=== PATIENT | male | born 1950 | race Caucasian/White ===

== ENCOUNTER 2017-10-29 05:38 | Emergency (ER) | payer OTHER ==
[2017-10-29] MEDS: IOHEXOL 100 ML (05:49)
[2017-10-29] MEDS: SOD CHLORIDE 0.9% 100 ML (05:49)
[2017-10-29 05:53] LABS: ADD MAN DIFF? NO
[2017-10-29 05:59] LABS: WHITE BLOOD COUNT 9.4 10^3/ul (4.8-10.8)
[2017-10-29 05:59] LABS: BASOPHILS % 0.4 % (0.0-2.0); EOSINOPHILS # 0.1 10^3/ul (0.0-0.5); EOSINOPHILS % 1.3 % (0.0-7.0); HEMATOCRIT 41.2 % (42.0-52.0); HEMOGLOBIN 14.2 g/dl (14.0-18.0); LYMPHOCYTES # 2.6 10^3/ul (0.8-2.9); LYMPHOCYTES % 27.6 % (15.0-51.0); MEAN CORPUSCULAR HEMOGLOBIN 31.4 pg (29.0-33.0); MEAN CORPUSCULAR HGB CONC 34.5 g/dl (32.0-37.0); MEAN CORPUSCULAR VOLUME 91.2 fl (82.0-101.0); MEAN PLATELET VOLUME 9.4 fl (7.4-10.4); MONOCYTE # 0.6 10^3/ul (0.3-0.9); MONOCYTES % 6.2 % (0.0-11.0); PLATELET COUNT 220 10^3/UL (140-415); RED BLOOD COUNT 4.52 10^6/ul (4.70-6.10)
[2017-10-29 06:12] LABS: ALANINE AMINOTRANSFERASE 26 IU/L (13-69); ALBUMIN 4.3 g/dl (3.3-4.9); ALBUMIN/GLOBULIN RATIO 1.04; ALKALINE PHOSPHATASE 98 IU/L (42-121); ANION GAP 20 (8-16); ASPARTATE AMINO TRANSFERASE 25 IU/L (15-46); BILIRUBIN,INDIRECT 0.4 mg/dl (0-1.1); BILIRUBIN,TOTAL 0.4 mg/dl (0.2-1.3); BLOOD UREA NITROGEN 9 mg/dl (7-20); CALCIUM 9.4 mg/dl (8.4-10.2); CARBON DIOXIDE 21 mmol/L (21-31); CHLORIDE 105 mmol/L (97-110); CHOL/HDL RATIO 5.5 RATIO; CHOLESTEROL 184 mg/dl (100-200); CREATINE KINASE 67 IU/L (23-200); CREATININE 0.89 mg/dl (0.61-1.24); GLUCOSE 248 mg/dl (70-220); HDL CHOLESTEROL 33 mg/dl (30-78); LDL CHOLESTEROL,CALCULATED 100 mg/dl; PARTIAL THROMBOPLASTIN TIME 32.4 Sec (25.0-35.0); POTASSIUM 3.8 mmol/L (3.5-5.1); SODIUM 142 mmol/L (135-144); TOTAL PROTEIN 8.4 g/dl (6.1-8.1); TRIGLYCERIDES 253 mg/dl (0-149)
[2017-10-29] MEDS: SOD CHLORIDE 0.9% 1,000 ML IV (06:13)
[2017-10-29 06:17] LABS: INR 1.08; PROTIME 14.1 Sec (11.9-14.9); PT RATIO 1.1
[2017-10-29 06:24] LABS: CK-MB 0.44 ng/ml (0.0-2.4); TROPONIN-I < 0.012 ng/ml (0.000-0.120)
[2017-10-29 06:25] LABS: CK INDEX 0.7
[2017-10-29 06:40] LABS: AADO2 Arterial 78.3 mmHg (7.0-24.0); Allen Test ACCEPTAB; Arterial Base Excess -2.6 mmol/L (-3.0-3); Arterial Blood Gas Oxygen Sat 94.7 mmHG (95.0-98.0); Arterial COHb 0.3 % (0.0-3.0); Arterial Fraction of Oxyhgb 94.2 % (93.0-99.0); Arterial MetHb 0.2 % (0.0-1.5); Arterial Total Hemglobin 13.8 g/dl (12.0-18.0); Arterial pCO2 33.1 mmhg (35-45); MODE NASAL CANNULA; Site Right Radial
[2017-10-29 06:45] LABS: ETHANOL < 10.0 mg/dl
[2017-10-29 06:47] LABS: HEMOGLOBIN A1C 5.8 % (0-5.9)
[2017-10-29] MEDS: ASPIRIN 300 MG SUPP PR (07:24)
[2017-10-29 07:49] LABS: ADD UMIC NO; UR ASCORBIC ACID NEGATIVE (NEGATIVE); UR BILIRUBIN (Dip) NEGATIVE (NEGATIVE); UR BLOOD (Dip) NEGATIVE (NEGATIVE); UR CLARITY CLEAR (CLEAR); UR COLOR COLORLESS (YELLOW); UR GLUCOSE (Dip) 2+ mg/dL (NEGATIVE); UR KETONES (Dip) NEGATIVE (NEGATIVE); UR LEUKOCYTE ESTERASE (Dip) NEGATIVE Leu/ul (NEGATIVE); UR NITRITE (Dip) NEGATIVE (NEGATIVE); UR SPECIFIC GRAVITY (Dip) 1.026 (1.003-1.030); UR TOTAL PROTEIN (Dip) NEGATIVE (NEGATIVE); UR UROBILINOGEN (Dip) NEGATIVE (NEGATIVE)
[2017-10-29 08:19] LABS: AMPHETAMINE/METHAMPHETAMINE Negative (NEGATIVE); BARBITURATES Negative (NEGATIVE); BENZODIAZEPINES Negative (NEGATIVE); CANNABINOIDS Negative (NEGATIVE); COCAINE Negative (NEGATIVE); OPIATES Negative (NEGATIVE)
== END 2017-10-29 08:18 | disposition short-term general hospital (02) ==
LOC: E/R 05:38
DX: G93.40 Encephalopathy, unspecified (principal); R53.1 Weakness; R47.81 Slurred speech; I63.9 Cerebral infarction, unspecified; R73.9 Hyperglycemia, unspecified
CPT/HCPCS: 36415; 36600; 70450; 70496; 70498; 71045; 80053; 80061; 80307; 81003; 82550; 82553; 82803; 82962; 83036; 84484; 85025; 85610; 85730; 86850; 86900; 86901; 93005; 99291-25